=== PATIENT | male | born 1980 | race Caucasian/White ===

== ENCOUNTER 2024-06-01 09:34 | Emergency (ER) | payer MEDICAID, OTHER ==
[~2024-06-01] VITALS: Ht 177.8 cm; Wt 79.5 kg
[2024-06-01 09:45] VITALS: TEMP 98.5
[2024-06-01 10:30] VITALS: BP 116/82; PULSE 103; RESP 8; O2SAT 100
[2024-06-01] MEDS ORDERED: DOXY-354 PO (10:49)
== END 2024-06-01 11:08 | disposition home or self-care (01) ==
LOC: EMS 09:36
DX: L03.113 Cellulitis of right upper limb (principal); F15.10 Other stimulant abuse, uncomplicated; Z88.0 Allergy status to penicillin; F17.210 Nicotine dependence, cigarettes, uncomplicated
CPT/HCPCS: 99283; Z7502

== ENCOUNTER 2024-06-03 07:24 | Emergency (ER) | payer OTHER ==
[~2024-06-03] VITALS: Ht 177.8 cm; Wt 79.0 kg
[~2024-06-03 07:24] MED LIST: DOXY-354 PO
[2024-06-03 07:30] VITALS: TEMP 97.9
[2024-06-03 08:56] VITALS: BP 118/74; PULSE 83; RESP 16; O2SAT 99
== END 2024-06-03 09:50 | disposition home or self-care (01) ==
LOC: EMS 07:29
DX: S51.801A Unspecified open wound of right forearm, initial encounter (principal); F17.210 Nicotine dependence, cigarettes, uncomplicated; Z88.0 Allergy status to penicillin; W57.XXXA Bitten or stung by nonvenomous insect and other nonvenomous arthropods, initial encounter; Y93.89 Activity, other specified; Y92.89 Other specified places as the place of occurrence of the external cause; Y99.8 Other external cause status
CPT/HCPCS: 99281; Z7502